=== PATIENT | female | born 1970 | race Caucasian/White ===

== ENCOUNTER 2017-10-31 01:10 | Emergency (ER) | payer OTHER ==
[~2017-10-31] VITALS: Ht 170.2 cm; Wt 154.6 kg
[~2017-10-31 01:10] MED LIST: DULO-24 PO; PANT40TA PO
[2017-10-31 01:16] VITALS: TEMP 36.5; Ht 170.2 cm; Wt 154.6 kg
[2017-10-31] MEDS ORDERED: IBUPROFEN 600 MG TAB PO STA (01:25)
[2017-10-31] MEDS ORDERED: OXYCODONE/ACETAMINOPHEN 5-325 TAB PO ONE (01:30)
--- NOTE | 2017-10-31 01:40 | EMERGENCY ROOM VISIT NOTE ---
History Report prepared by Felicia: Abdoulaye Morales Under the Supervision of: Dr. Edmundo Kilpatrick M.D. First contact with patient: :20 Chief Complaint: KNEEPAIN Stated Complaint: RIGHT AND LEFT KNEE AND LEFT ANKLE PAIN (WORK COMP History of Present Illness The patient is a 47 year old female who presents to the Emergency Room with complaints of sharp, persistent left knee pain following a fall that occurred earlier today. The patient notes that she has had two ACL repairs of her left knee in the past. She reports pain in her left knee upon bending and pain in her left ankle. The patient denies walking on her left leg since her fall. She notes that she sees an orthopedic doctor in [place]. Source of History: patient Onset: Earlier today Position: knee (left) Quality: sharp Timing: other (persistant ) Modifying Factors (Worsening): movement Note: Associated symptoms: left ankle pain Review of Systems See HPI for pertinent positives & negatives. A total of 10 systems reviewed and were otherwise negative. Past Medical & Surgical Surgical Problems: (1) S/P ACL repair Family History Patient reports no known family medical history. Social History Smoking Status: Current Every Day Smoker Alcohol Use: none Drug Use: none Marital Status: in relationship Occupation Status: employed Current/Historical Medications Scheduled Duloxetine HCl (Cymbalta), 1 CAP PO DAILY Pantoprazole (Protonix), 40 MG PO DAILY Scheduled PRN Oxycodone/Acetaminophen 5MG/325MG (Percocet 5MG/325MG), 1-2 TAB PO Q4H PRN for Pain Allergies Coded Allergies: No Known Allergies (Unverified , 10/31/17) Physical Exam Vital Signs Date Time Temp Pulse Resp B/P (MAP) Pulse Ox O2 Delivery O2 Flow Rate FiO2 10/31/17 03:12 79 20 139/100 97 10/31/17 01:16 36.5 94 18 161/96 97 Room Air Physical Exam GENERAL: Patient is a healthy-appearing well-nourished 47 year old female. HEAD: Normocephalic atraumatic EYES: Ocular movements intact pupils equal and react to light OROPHARYNX mucous membranes are moist no exudates present no erythema or edema present NECK: Supple no nuchal rigidity CHEST: Good equal expansion LUNGS: Clear and equal to auscultation CARDIAC: Normal S1 and S2 ABDOMEN: Soft nontender no guarding BACK: No CVA tenderness EXTREMITIES: Pain with valgus stress. No evidence of contusion or bruising. Good range of motion of the ankle, free from pain. Leg is neurovascularly intact. Good range of motion of left hip, free from pain. NEURO: Patient is following commands and answering questions appropriately. Alert and oriented x3 Cranial Nerves 2-12 grossly intact Medical Decision & Procedures ER Provider Diagnostic Interpretation: Radiology results as stated below per my review and radiologist interpretation: A 3 view of the ankle was interpreted by me. Shows no evidence of fracture, dislocation, or subluxation. A 2 view of the knee was interpreted by me. Shows prior surgery, questionable tibial plateau fracture and patella in place. A 2 view of the tibia was interpreted by me. Questionable tibial plateau fracture. No dislocation or subluxation. CAT scan of the knee does not show any acute fracture dislocation or subluxation. It does show old surgical sites and a large amount of osteoarthritis. Medications Administered Medications (Trade) Dose Ordered Sig/Luci Route Start Time Stop Time Status Last Admin Dose Admin Ibuprofen (Motrin Tab) 600 mg NOW STAT PO 10/31/17 01:25 10/31/17 01:28 DC 10/31/17 02:01 600 MG Oxycodone/ Acetaminophen (Percocet 5-325mg Tab) 2 tab NOW ONCE PO 10/31/17 01:30 10/31/17 01:31 DC 10/31/17 02:02 2 TAB ED Course 0122: Past medical records reviewed. The patient was evaluated in room B5. A complete history and physical examination was performed. 0125: Ordered Ibuprofen 600mg PO 0130: Ordered Oxycodone/Acetaminophen 2 tabs PO. Medical Decision Differential diagnosis: Etiologies such as fracture, dislocation, intra-abdominal, pneumothorax, intrathoracic , intracranial, neurologic, as well as other traumatic pathologies were entertained. This is a 47-year-old female who presents emergency department from her workplace complaining of knee pain after a fall. The patient has had multiple surgeries on this knee. She was sent for x-rays which are interpreted by me as above. As is concerning for tibial plateau fracture the patient was sent for CAT scan of the knee. This did not show any acute fracture dislocation or subluxation. The patient was placed in a knee immobilizer along with crutches and I stressed the need for follow-up with orthopedics. She was given ibuprofen as well as Percocet in the emergency department. Patient was in agreement with the treatment plan. Medication Reconcilliation Current Medication List: was personally reviewed by me Blood Pressure Screening Patient's blood pressure: Elevated blood pressure Blood pressure disposition: Referred to PCP Impression Primary Impression: Knee pain Scribe Attestation The scribe's documentation has been prepared under my direction and personally reviewed by me in its entirety. I confirm that the note above accurately reflects all work, treatment, procedures, and medical decision making performed by me. Departure Information Prescriptions Oxycodone/Acetaminophen 5MG/325MG (PERCOCET 5MG/325MG) Tab 1-2 TAB PO Q4H Y for Pain, #14 TAB Prov: Edmundo Kilpatrick MD 10/31/17 Referrals Isaura Echavarria D.O. (PCP) Patient Instructions My [facility] Problem Qualifiers Primary Impression: Knee pain Chronicity: acute Laterality: left Qualified Codes: M25.562 - Pain in left knee
[2017-10-31] MEDS ORDERED: CYM/30 PO (01:47)
[2017-10-31] MEDS ORDERED: PANT40TA PO (01:47)
[2017-10-31] MEDS ORDERED: OXYC-57 PO (02:58)
[2017-10-31 03:12] VITALS: BP 139/100; PULSE 79; O2SAT 97
--- NOTE | 2017-10-31 08:17 | DIAGNOSTIC IMAGING REPORT ---
L KNEE 1 OR 2 VIEWS ROUTINE CLINICAL HISTORY: Left knee pain following fall. COMPARISON: Left knee radiographs June 29, 2013. FINDINGS: Alignment of the left knee is anatomic. There are postoperative findings consistent with an ACL reconstruction. There is a trace left knee joint effusion. No fracture is identified. There is moderate osteophytosis of the patellofemoral compartment as well as mild osteophytosis within the medial and lateral compartments of the left knee. IMPRESSION: 1. No acute fracture. 2. Small left knee joint effusion. 3. Status post ACL reconstructions. 4. Mild to moderate osteoarthritis of the left knee, most pronounced within the patellofemoral compartment. Electronically signed by: Aleksey Matt M.D. 10/31/2017 8:16 AM Dictated Date/Time: 10/31/2017 8:13 AM
--- NOTE | 2017-10-31 08:22 | DIAGNOSTIC IMAGING REPORT ---
L TIBIA/FIBULA 2 VIEWS ROUTINE CLINICAL HISTORY: Left ankle and knee pain following fall. COMPARISON: Left knee radiographs June 29, 2013. FINDINGS: There are postoperative findings consistent with an ACL reconstruction. Screw tracks are noted within the left tibia. No acute fracture of the left tibia or fibula is identified. IMPRESSION: 1. No acute fracture of the left tibia or fibula. 2. Status post left ACL reconstruction. Electronically signed by: Aleksey Matt M.D. 10/31/2017 8:20 AM Dictated Date/Time: 10/31/2017 8:19 AM
--- NOTE | 2017-10-31 08:23 | DIAGNOSTIC IMAGING REPORT ---
L ANKLE MIN 3 VIEWS ROUTINE CLINICAL HISTORY: Left ankle pain following fall. COMPARISON: None FINDINGS: Alignment of the left ankle is anatomic. No acute fracture. There is moderate posterior and plantar calcaneal spurring. Os trigonum is noted. There is mild to moderate mid foot arthritis. There is mild arthritis of the left ankle. IMPRESSION: No acute fracture or dislocation of the left ankle. Electronically signed by: Aleksey Matt M.D. 10/31/2017 8:21 AM Dictated Date/Time: 10/31/2017 8:20 AM
--- NOTE | 2017-10-31 08:40 | DIAGNOSTIC IMAGING REPORT ---
CT OF THE LEFT KNEE WITHOUT CONTRAST CLINICAL HISTORY: Left knee pain status post fall. COMPARISON STUDY: Left knee radiographs June 29, 2013 and October 31, 2017. TECHNIQUE: Axial images of the left knee were obtained without IV contrast. Sagittal and coronal reconstructions were viewed. FINDINGS: The patient is status post left ACL reconstruction x2. Old tibial tunnel is noted. Graft cannot be assessed by CT. There is no acute fracture. There is a trace left knee joint effusion. There is mild medial and patellofemoral compartment joint space narrowing with moderate osteophytosis of the left knee. No suspicious osseous lesion is noted. IMPRESSION: 1. No acute fracture. 2. Trace left knee joint effusion. 3. Status post ACL reconstruction x2. 4. Mild to moderate osteoarthritis of the left knee. Electronically signed by: Aleksey Matt M.D. 10/31/2017 8:38 AM Dictated Date/Time: 10/31/2017 8:29 AM
== END 2017-10-31 03:12 | disposition home or self-care (01) ==
LOC: C.EDB 01:12
DX: M25.562 Pain in left knee (principal); W19.XXXA Unspecified fall, initial encounter; Y92.9 Unspecified place or not applicable; F17.210 Nicotine dependence, cigarettes, uncomplicated; Z79.899 Other long term (current) drug therapy